=== PATIENT | female | born 2000 | race Caucasian/White ===

== ENCOUNTER 2022-01-25 17:19 | Emergency (ER) | payer OTHER, SELFPAY ==
[2022-01-25 17:31] VITALS: BP 137/84; PULSE 77; RESP 16; TEMP 37.1; O2SAT 99
--- NOTE | 2022-01-25 18:58 | ED.GENADULT ---
HPI - General Adult General Chief complaint: Ear Stated complaint: dizzy, thumping to right ear Time Seen by Provider: 01/25/22 18:15 History of Present Illness HPI narrative: 21-year-old female presented to the emergency department for evaluation of right ear pressure and symptoms of vertigo. Patient states symptoms have been present for the last few days. Patient states that she often gets a thumping in her right ear. Patient states that the vertigo is worse in the morning. Related Data Allergies Allergy/AdvReac Type Severity Reaction Status Date / Time No Known Allergies Allergy Verified 01/25/22 19:03 Review of Systems Review of Systems: CONSTITUTIONAL: Denies fever, chills, or sweats. EYES: Denies visual changes, redness, or discharge. ENT: Right ear pressure and vertigo CARDIOVASCULAR: Denies chest pain, palpitations, or edema. RESPIRATORY: Denies cough or dyspnea. GASTROINTESTINAL: Denies abdominal pain, nausea, vomiting, or diarrhea. GENITOURINARY: Denies dysuria or hematuria. SKIN: Denies rash or itching. MUSCULOSKELETAL: Denies back pain, joint pain, or myalgia. NEUROLOGIC: Denies headache, numbness, or weakness. Exam Narrative: APPEARANCE: Well appearing, no pain, no distress, well-nourished. HEAD: normocephalic, atraumatic. EYES: PERRLA/EOMI, conjunctivae clear. NOSE: Normal no drainage EARS: Fluid behind right TM no significant erythema. Left TM normal-appearing THROAT: Pharynx clear, no exudate. NECK: Supple. No adenopathy, no masses. RESPIRATORY: Airway patent, respirations nonlabored. Clear to auscultation bilaterally, no rales, rhonchi, wheezing. CARDIOVASCULAR: Regular rate and rhythm without murmurs rubs or gallops. ABDOMINAL: Soft, nontender, nondistended, normal bowel sounds MUSCULOSKELETAL: Moves all extremities. Strength/ROM intact, No edema, No calf tenderness. NEURO: Alert. Cranial nerves II through XII intact. Grossly intact SKIN: Warm, dry. Normal Color Course Course Emergency Course: Patient was treated for suspected ear infection. Patient was also started on meclizine for vertigo symptoms. Patient and mother were comfortable with the plan with discharge and close follow-up. Vital Signs Vital signs: Vital Signs Temperature 98.8 F 01/25/22 17:31 Pulse Rate 77 01/25/22 17:31 Respiratory Rate 16 01/25/22 17:31 Blood Pressure 137/84 01/25/22 17:31 Pulse Oximetry 99 01/25/22 17:31 Oxygen Delivery Room Air 01/25/22 17:31 Temperature 98.8 F 01/25/22 17:31 Pulse Rate 77 01/25/22 17:31 Respiratory Rate 16 01/25/22 17:31 Blood Pressure 137/84 01/25/22 17:31 Pulse Oximetry 99 01/25/22 17:31 Oxygen Delivery Room Air 01/25/22 17:31 Medical Decision Making Vital Signs Vital Signs: Vital Signs Temperature 98.8 F 01/25/22 17:31 Pulse Rate 77 01/25/22 17:31 Respiratory Rate 16 01/25/22 17:31 Blood Pressure 137/84 01/25/22 17:31 Pulse Oximetry 99 01/25/22 17:31 Oxygen Delivery Room Air 01/25/22 17:31 Temperature 98.8 F 01/25/22 17:31 Pulse Rate 77 01/25/22 17:31 Respiratory Rate 16 01/25/22 17:31 Blood Pressure 137/84 01/25/22 17:31 Pulse Oximetry 99 01/25/22 17:31 Oxygen Delivery Room Air 01/25/22 17:31 Discharge Plan Discharge Clinical Impression: Vertigo, Acute otalgia Patient Disposition: Home, Self-Care Condition: Stable Instructions: Antibiotic Form, Vertigo (DC) Additional Instructions: Antibiotic as directed. Meclizine as needed for vertigo. Have close follow-up with your primary care physician. Additionally you may need follow-up with ENT. Prescriptions: New meclizine 25 mg tablet 25 mg PO BID PRN (Reason: vertigo) Qty: 14 0RF amoxicillin-pot clavulanate 875-125 mg tablet 1 tablet PO Q12H Qty: 14 0RF Follow-up/Referrals: Mihelcic,Mike Aguila MD [Primary Care Provider] -
[2022-01-25] MEDS: AMOXICILLIN/CLAVULANATE K 875-125 MG TAB 1 TABLET PO (19:04)
[2022-01-25] MEDS: MECLIZINE HCL 25 MG TABLET PO (19:04)
== END 2022-01-25 19:09 | disposition home or self-care (01) ==
PROVIDERS: Emergency Provider Emergency Medicine; PCP Family Medicine
DX: H92.01 Otalgia, right ear (principal); R42 Dizziness and giddiness
CPT/HCPCS: 99283; A9270

== ENCOUNTER 2024-01-29 15:12 | Emergency (ER) | payer BC, SELFPAY ==
--- NOTE | 2024-01-29 15:24 | ED.URI ---
HPI - URI/Sore Throat General Chief Complaint: Upper Respiratory Infection Stated Complaint: SORE THROAT Time Seen by Provider: 01/29/24 15:44 Source: patient and RN notes reviewed Mode of arrival: ambulatory Limitations: no limitations History of Present Illness HPI Narrative: 23-year-old female presents with concern for sore throat. She reports nasal congestion, rhinorrhea. Reports symptoms started yesterday. She reports her roommate has similar symptoms. MD elicited complaint: sore throat Related Data Allergies Allergy/AdvReac Type Severity Reaction Status Date / Time No Known Allergies Allergy Verified 01/25/22 19:03 Review of Systems Review of Systems: CONSTITUTIONAL: Denies malaise, chills, sweats, or fever. EYES: Denies visual changes, redness, or discharge. ENT: Reports rhinorrhea, congestion, sore throat. CARDIOVASCULAR: Denies chest pain, palpitations, or edema. RESPIRATORY: Reports cough. Denies dyspnea. GASTROINTESTINAL: Denies abdominal pain, nausea, vomiting, diarrhea SKIN: Denies rash or itching. MUSCULOSKELETAL: Denies myalgia. NEUROLOGIC: Denies headache. All systems reviewed & are unremarkable except as noted in HPI and below PMFSH Comments At time of signature, agree with nursing past medical, surgical, social and family history. There is no relevant family history pertinent to the presenting complaint Exam Narrative: GENERAL: Well-appearing, well-nourished, and in no acute distress. HEAD: Normocephalic EYES: PERRLA, conjunctivae clear ENT: Nares clear, turbinates edematous and erythematous, clear discharge. Mucous membranes moist. TM pearly matt with dull light reflex bilaterally; no tragal tenderness. Oropharynx not erythematous without lesions. Tonsils not enlarged and without exudate, no drooling, no hoarseness, no trismus, uvula midline. NECK: Supple. No lymphadenopathy CHEST: Clear to auscultation, breath sounds equal. No wheezing, rhonchi, rales, or stridor. No respiratory distress, speaks in full sentences. HEART: Regular rate and rhythm. No murmur heard. SKIN: Warm, dry, no rash. NEURO: Alert and oriented x3. PSYCH: Normal mood and affect Course Course Emergency Course: Patient is aware of diagnosis, understands and agrees to treatment plan. Anticipatory guidance given. Patient agrees to follow-up as directed and is aware of reasons to seek care at the emergency department. Portions of this record may have been created with voice recognition software Level of Care: Express Care Visit Vital Signs Vital signs: Reviewed. MDM - URI/Sore Throat MDM Narrative Medical decision making narrative: Differential diagnosis considered: Rivera virus, strep pharyngitis, allergic rhinitis, upper respiratory tract infection, sinusitis, rhinosinusitis, nasopharyngitis. viral pharyngitis, otitis media, otitis externa, pneumonia, bronchitis, viral cough syndrome, viral syndrome, and influenza. Exam findings show no acute concerns or changes; patient is non-toxic appearing and is in no distress. Patient is appropriate for outpatient treatment and follow-up. Lab Data Attestation: I reviewed the patient's lab results. Critical Care Time Critical Care Time Critical Care Time: No Discharge Plan Discharge Clinical Impression: Upper respiratory infection Patient Disposition: Home, Self-Care Condition: Stable Instructions: Upper Respiratory Infection (ED) Additional Instructions: Your rapid strep swab was negative today at [facility]. A throat culture will be sent to the laboratory for further testing. If the test is positive, you will receive a phone call within 48 hours and an appropriate antibiotic will be initiated at that time. Your symptoms are likely due to a viral illness, which is not treated with antibiotics. Viral symptoms can be present for up to a few weeks. -Alternate Tylenol and Motrin per package directions for fever or pain. -Antihistamine medication such as Familia
[2024-01-29 15:33] VITALS: BP 117/64; PULSE 70; RESP 16; TEMP 36.7; O2SAT 99
[2024-01-29 15:49] LABS: EDSTREPNEGPOS1 Negative
== END 2024-01-29 16:00 | disposition home or self-care (01) ==
PROVIDERS: Emergency Provider Nurse Practitioner
DX: J06.9 Acute upper respiratory infection, unspecified (principal)
CPT/HCPCS: 87081; 87880; 99213; G0463